=== PATIENT | male | born 1960 | race Caucasian/White ===

== ENCOUNTER 2025-03-10 15:14 | Emergency (ER) | payer BC, SELFPAY ==
[2025-03-10 15:19] VITALS: BP 155/94
--- NOTE | 2025-03-10 17:55 | ED.GENMED ---
History of Present Illness
General
Chief Complaint: Head Injury
Source: patient
Time Seen by Provider: 03/10/25 16:55
History of Present Illness
History of Present Illness:
64-year-old male with past medical history of factor XII deficiency, hypertension, hyperlipidemia presenting to the emergency department for evaluation at the request of his primary care provider after patient had an accidental fall on Monday
last week stating his dog's leash got tied around his ankles causing him to trip and in trying to break his fall accidentally hit his head on a small bench. Patient sustained an abrasion to the frontal scalp. He had a very faint headache on Monday
and Monday but states feels well otherwise now, contacted primary care provider who stated patient needed to come to the ER for imaging due to his factor XII deficiency. Patient without any other concerns presently.
Past History
Past History
ED Past Medical History: HTN, Hypercholesterolemia and Other (Factor XII deficiency); Negative IDDM or NIDDM
ED Past Surgical History: Orthopedic; Negative Cardiac
Social History
Tobacco: Non-smoker
Alcohol: Occasional
Drug: None
Personal:
Living: with family
Employment: Employed
Family History
Family History: Other (no early cad. dad with pacer.)
Review of Systems
Review of Systems
All Other Systems: ROS reviewed and negative except as documented in HPI and ROS
Phy Exam
Physical Exam
Physical Exam:
GENERAL: Alert , in no apparent distress
EYE: conjunctiva clear
Head: Superficial well-healing abrasion/contusion to the frontal scalp
NECK: Supple,
ENT: mmm.
LUNGS: no acute respiratory distress
NEUROLOGICAL: Alert and oriented x 3
SKIN: Warm and dry, skin intact.
MUSCULOSKELETAL: well perfused. Moves all extremities
PSYCH: Normal and appropriate interaction.
Scores
Heart Failure Risk
Heart Failure Risk Score: Not Applicable
Heart Score for Chest Pain Patients
STEMI patient?: Not applicable
Withdrawal Assessment of Alcohol
Withdrawal Assessment Completed?: Not applicable
Course
Orders/Labs/Results
Orders:
Orders
03/10/25
CT Cervical Spine W/o Iv Contr Urgent
Reason For Exam: INJURY
03/10/25 15:21
CT Head W/o Iv Contrast Urgent
Comment:
Reason For Exam: injury
Vital Signs
Initial and Last Documented VS:
Initial Vital Signs
Temp Pulse Resp BP Pulse Ox
98.2 F 86 20 155/94 99
03/10/25 15:19 03/10/25 15:19 03/10/25 15:19 03/10/25 15:19 03/10/25 15:19
Last Documented Vital Signs
Temp Pulse Resp BP Pulse Ox
98.2 F 86 20 155/94 99
03/10/25 15:19 03/10/25 15:19 03/10/25 15:19 03/10/25 15:19 03/10/25 17:58
MDM/Problems Addressed
Differential Diagnosis Includes:
Contusion
Abrasion
Concussion
Intracranial bleeding
MDM/Problems Addressed:
64-year-old male presenting to the ER for evaluation at the request of primary care provider due to head injury with known factor deficiency. Injury occurred 5 days ago. Patient with waxing waning headache and nausea since then. Suspect
concussion is most likely diagnosis. CT of the head ordered.
*Radiology
Radiology exam reviewed: radiology read reviewed
*Pulse Oximetry
SaO2: 99
Oxygen Mode of Delivery: Room air
Patient hypoxic: no
*Critical Care Note
Total Time (30-74mins, 75-104mins- exclusive of procedures): Not Applicable
Patient Management
Escalation/DeEscalation of care consider admission/obs:
Patient's head CT negative for any acute intracranial pathology. Suspect concussion is most likely diagnosis. Concussion management discussed with patient. He will follow-up with primary care provider as needed. Aware of return precautions to
the ER.
ED Attending Note
-
Portions of this chart may have been created with voice recognition software.� Occasional wrong word or��sound alike� substitutions may have occurred due to the inherent limitations of voice recognition software.
Discharge Plan
Departure
Patient Disposition: Home (Routine Discharge)
Date of Disposition: 03/10/25
Time of Disposition: 18:48
Patient with high blood pressure during this ER visit?: Yes
Discharge Problem:
Head injury
Instructions: Concussion, Adult (DC)
Prescriptions:
No Action
pantoprazole 40 MG tablet,delayed release (DR/EC)
40 mg PO DAILY
metoprolol tartrate 50 MG tablet
25 mg PO BID
metronidazole 500 MG tablet
500 mg PO TID Qty: 30 0RF
levofloxacin 500 MG tablet
500 mg PO DAILY Qty: 10 0RF
hydrocodone-acetaminophen 1 TABLET tablet
1 tab PO Q4HPRN PRN (Reason: breakthrough pain) Qty: 10 0RF
Referrals:
Jus Schulte MD [Family Provider, Family Practice]
Interventions
Interventions:
*Risk Screen - Suicide Last Done: 03/10/25 16:53
*General Assessment Last Done: 03/10/25 15:19
*Neglect/Abuse Screening Last Done: 03/10/25 16:53
*ED- Fall Risk Assessment Last Done: 03/10/25 16:53
*ED COVID-19 Vaccine History Last Done: 03/10/25 16:53
*Nursing Disposition Last Done: 03/10/25 18:52
ED- Neurological Assessment Last Done: 03/10/25 16:53
ED-Skin Assessment Last Done: 03/10/25 16:53
Discharge Date and Time
Print Language: MALAY
== END 2025-03-10 18:53 | disposition home or self-care (01) ==
LOC: EMR 15:14
PROVIDERS: EMERGENCY PHYSICIAN Emergency Medicine; FAMILY PHYSICIAN Family Medicine
DX: S00.03XA Contusion of scalp, initial encounter (principal); W01.198A Fall on same level from slipping, tripping and stumbling with subsequent striking against other object, initial encounter; D68.2 Hereditary deficiency of other clotting factors; I10 Essential (primary) hypertension; E78.00 Pure hypercholesterolemia, unspecified
CPT/HCPCS: 99284; 70450; 72125